=== PATIENT | female | born 1955 ===

== ENCOUNTER → 2025-04-14 08:33 | Outpatient (CLI) | payer OTHER ==
[2025-04-14 09:34] LABS: BASO % 0.4 % (0.1-1.2); EOS # 0.16 (0.04-0.54); EOS % 2.3 % (0.7-7.0); LYMPH # 1.92 (1.18-3.74); LYMPH % 28.2 % (19.3-53.1); MEAN PLATELET VOLUME 10.70 fl (9.4-12.4); MONO # 0.72 (0.24-0.82); MONO % 10.6 % (4.7-12.5); NEUT # 3.94 (1.56-6.13); NEUT % 57.9 % (34.0-71.1); RED CELL DISTRIBUTION WIDTH 14.2 % (11.6-14.4)
[2025-04-14 10:00] LABS: ALT/SGPT 28.0 U/L (12-78); AST/SGOT 19.0 U/L (15-37); BILIRUBIN TOTAL 0.42 mg/dL (0.3-1.2); BUN CREA RATIO 19.0 (7.0-25.0); CREATININE SERUM 1.45 mg/dL (0.55-1.02); FE 55.0 ug/dl (50-170); GFR 36.02; GLOBULINA 4.0 G/DL (2.4-3.5); GLUCOSE FASTING 99.0 mg/dL (65-100); LDH 195.0 U/L (84-246); OSMOLALITY SERUM 288.0 MOSM/KG (275-295)
[2025-04-14 10:56] LABS: FOLIC ACID > 20.00 ng/ml (4.78-20)
[2025-04-15 09:11] LABS: CA 125 12.1 U/mL (0.0-38.1); CA 15-3 28.6 U/mL (0.0-25.0); CA 19-9 < 2 U/mL (0-35); HOMOCYSTEINE 12.5 umol/L (0.0-17.2)
== END | disposition home or self-care (01) ==
LOC: LAB 08:33
PROVIDERS: ATTEND Internal Medicine Hematology & Oncology
DX: D50.8 Other iron deficiency anemias (principal); D68.61 Antiphospholipid syndrome; D51.3 Other dietary vitamin B12 deficiency anemia; I10 Essential (primary) hypertension; E11.9 Type 2 diabetes mellitus without complications; E78.2 Mixed hyperlipidemia; E03.8 Other specified hypothyroidism; F33.9 Major depressive disorder, recurrent, unspecified; G47.33 Obstructive sleep apnea (adult) (pediatric); E06.3 Autoimmune thyroiditis; R74.02 Elevation of levels of lactic acid dehydrogenase [LDH]; K76.89 Other specified diseases of liver; D51.0 Vitamin B12 deficiency anemia due to intrinsic factor deficiency; C50.919 Malignant neoplasm of unspecified site of unspecified female breast; C25.9 Malignant neoplasm of pancreas, unspecified; R97.0 Elevated carcinoembryonic antigen [CEA]